=== PATIENT | female | born 1990 | race Caucasian/White ===

== ENCOUNTER 2025-08-18 14:06 | Emergency (ER) | payer BC ==
[~2025-08-18] VITALS: Ht 157.5 cm; Wt 59.0 kg
[2025-08-18 14:17] VITALS: BP 144/95
[2025-08-18 15:29] VITALS: BP 144/95; O2SAT 99
== END 2025-08-18 15:30 | disposition home or self-care (01) ==
LOC: ER 14:06
DX: F41.9 Anxiety disorder, unspecified (principal); F32.A Depression, unspecified; Z63.8 Other specified problems related to primary support group
CPT/HCPCS: A4606; A4663